=== PATIENT | female | born 1990 | race Two or more races ===

== ENCOUNTER 2017-07-20 22:00 | Inpatient (IN) | payer OTHER ==
[~2017-07-20 22:00] MED LIST: DEXTROSE 5%-LACTATED RINGERS 1,000 ML IV SCH
[2017-07-20] MEDS ORDERED: AMPICILLIN SODIUM 2 GM VIAL ONE (22:18)
[2017-07-20 22:27] VITALS: BMI 30.2
[2017-07-20] MEDS ORDERED: AMPICILLIN - 2 GM in SODIUM CHLORIDE 100 ML IVPB ONE (22:30)
[2017-07-20 23:04] LABS: BASO % 0.6 % (0-2.0); EOS % 0.5 % (0-4.5); HEMOGLOBIN 9.2 GM/dL (10.7-15.3); LYMPH % 10.7 % (8-40); MCH 28.9 pg (25.7-33.7); MEAN CELL VOLUME 87.7 fl (80-96); MEAN PLT VOLUME 11.4 fl (7.5-11.1); MONO % 6.8 % (3.8-10.2); NEUT % 81.4 % (42.8-82.8); PLATELET COUNT 121 K/MM3 (134-434); RDW 13.7 % (11.6-15.6); WHITE BLOOD COUNT 13.7 K/mm3 (4.0-10.0)
[2017-07-20] MEDS ORDERED: BUTORPHANOL TARTRATE 1 MG/ML VIAL IVPUSH ONE (23:25)
[2017-07-20] MEDS ORDERED: PROMETHAZINE HCL 25 MG/1 ML VIAL IVPUSH ONE (23:25)
[2017-07-20] MEDS ORDERED: OXYTOCIN 20 UNITS in 0.9% NS 20 UNIT/1,000 ML INFUS.BAG IV ONE (23:31)
[2017-07-20] MEDS ORDERED: BUTORPHANOL TARTRATE 1 MG/ML VIAL ONE ×2 (23:31)
[2017-07-20] MEDS ORDERED: PROMETHAZINE HCL 25 MG/1 ML VIAL ONE (23:31)
[2017-07-20] MEDS ORDERED: OXYTOCIN 15 UNITS/ LR 250 ML 15 UNIT/250 ML INFUS.BAG IVPB ONE (23:31)
[2017-07-20 23:40] LABS: ANION GAP 12 (8-16); BLOOD UREA NITROGEN 5 mg/dL (7-18); CALCIUM 8.4 mg/dL (8.5-10.1); CHLORIDE 104 mmol/L (98-107); CO2 24 mmol/L (21-32); CREATININE 0.4 mg/dL (0.55-1.02); GLUCOSE,RANDOM 87 mg/dL (74-106); POTASSIUM 3.8 mmol/L (3.5-5.1); SODIUM 140 mmol/L (136-145)
[2017-07-20 23:40] LABS: INR 1.09 (0.82-1.09); PROTHROMBIN TIME (PATIENT) 12.3 SEC (9.98-11.88)
[2017-07-20 23:42] LABS: ACTIVATED PTT 27.3 SECONDS (26.9-34.4)
[2017-07-20] MEDS ORDERED: OXYTOCIN 15 UNITS/ LR 250 ML 15 UNIT/250 ML INFUS.BAG IVPB SCH (23:45)
--- NOTE | 2017-07-21 00:26 | HP ---
Past Medical History - Admission Chief Complaint: Labor pain History of Present Illness: 26 yo @ 39.6 weeks gestation, EDC 07/21/17, admitted for labor pain. Upon admission she was 3cm dilated. History Source: Patient Limitations to Obtaining History: No Limitations - Past Medical History ...: 3 ...Para: 2 ...Term: 2 ...: 0 ...Spon : 0 ...Induced : 0 ...Multiple Gestation: 0 ...LMP: 10/14/16 ... Weeks Gestation by Dates: 39.5 ...EDC by Dates: 07/22/17 ...EDC by Sono: 07/21/17 - Past Surgical History Past Surgical History: Yes: None Hx Myomectomy: No Hx Transabdominal Cerclage: No - Smoking History Smoking history: Never smoked Have you smoked in the past 12 months: No - Alcohol/Substance Use Hx Alcohol Use: No History of Substance Use: reports: None - Social History Usual Living Arrangement: Yes: With Spouse History of Recent Travel: No Home Medications - Allergies Allergies/Adverse Reactions: Allergies Allergy/AdvReac Type Severity Reaction Status Date / Time No Known Allergies Allergy Verified 03/17/13 21:16 - Home Medications Home Medications: Ambulatory Orders Pnv with Ca,No.71/Iron/FA [ Vitamin Tablet] 1 tab PO DAILY 03/17/13 Family Disease History - Family Disease History Family History: Unremarkable Review of Systems - Review of Systems Constitutional: reports: No Symptoms Eyes: reports: No Symptoms HENT: reports: No Symptoms Neck: reports: No Symptoms Cardiovascular: reports: No Symptoms Respiratory: reports: No Symptoms Gastrointestinal: reports: No Symptoms Genitourinary: reports: Pain Breasts: reports: No Symptoms Reported Musculoskeletal: reports: No Symptoms Integumentary: reports: No Symptoms Neurological: reports: No Symptoms Endocrine: reports: No Symptoms Hematology/Lymphatic: reports: No Symptoms Psychiatric: reports: No Symptoms Pain Intensity: 5 Physical Exam - Maternity Vital Signs: Vital Signs Temperature 98.7 F 07/20/17 23:00 Pulse Rate 95 H 07/20/17 23:00 Respiratory Rate 20 07/20/17 23:00 Blood Pressure 128/76 07/20/17 23:00 O2 Sat by Pulse Oximetry (%) Constitutional: Yes: Well Nourished Eyes: Yes: Conjunctiva Clear HENT: Yes: Atraumatic Neck: Yes: Supple Cardiovascular: Yes: Regular Rate and Rhythm Lungs: Clear to auscultation - Abdominal Exam/OB Number of Fetuses: Single Presentation: Vertex Contractions: Yes Regularity: Irregular Intensity: Mild/Mod - Vaginal Exam/OB Vaginal Bleediing: No Dilatation (cm): 3 Station: -2 - Physical Exam ...Motor Strength: WNL Psychiatric: Yes: Alert, Oriented - Labs Lab Results: CBC, BMP 07/20/17 22:48 07/20/17 22:48 Assessment/Plan Labor pain in Admit to L&D Analgesia as needed Pitocin augmentation Anticipate
[2017-07-21] MEDS ORDERED: D5W-LR W/ 20 UNITS OXYTOCIN 20 UNIT/1,000 ML INFUS.BAG IV SCH (01:50)
[2017-07-21] MEDS ORDERED: METHYLERGONOVINE MALEATE 0.2 MG/1 ML AMP IM PRN (01:51)
[2017-07-21] MEDS ORDERED: BENZOCAINE 20% 57 GM BOTTLE TP PRN (01:51)
[2017-07-21] MEDS ORDERED: WITCH HAZEL 50% (TUCKS) 40 PAD/JAR PAD TP PRN (01:51)
[2017-07-21] MEDS ORDERED: BISACODYL 10 MG SUPP.RECT RC PRN (01:51)
[2017-07-21] MEDS ORDERED: BENZOCAINE 28 GM HEMORRHOIDAL OINTMENT TP PRN (01:51)
--- NOTE | 2017-07-21 01:58 | PN ---
Delivery - Delivery Vaginal Delivery: Spontaneous Type of Anesthesia: Local Episiotomy/Laceration: None EBL (cc): 250 Delivery, Single - Feeding Plan Initial Plan: Elected not to breastfeed exclusively throughout hospitalization Remarks - Remarks Remarks: Normal spontaneous vaginal delivery of a live boy over intact perineum. Nose / Oropharynx suctioned @ perineum. Tight nuchal cord x 2 noted. Cord clamped and cut. Baby handed to the waiting nurses. Placenta expelled spontaneously intact.
[2017-07-21] MEDS: OXYTOCIN 20 UNITS in 0.9% NS 20 UNIT/1,000 ML INFUS.BAG IV SCH ×2 (02:00→06:39)
[2017-07-21] MEDS ORDERED: AMPICILLIN - 1 GM in SODIUM CHLORIDE 100 ML IVPB SCH (02:30)
[2017-07-21] MEDS ORDERED: TUBERCULIN PPD 5 TU/0.1ML SYRINGE (IN PATIENT USE ONLY) ID ONE (03:00)
[2017-07-21] MEDS: ACETAMINOPHEN 325 MG TABLET (FP) PO PRN ×2 (03:48→11:37)
[2017-07-21] MEDS: IBUPROFEN 600 MG TABLET (FP) PO PRN (03:49)
[2017-07-21] MEDS: FERROUS SO4 325 MG TABLET (FP) PO SCH ×3 (07:54→17:00)
[2017-07-21] MEDS: PRENATAL VITAMINS W/ FOLIC ACID TABLET (FP) PO SCH (09:17)
[2017-07-22] MEDS: ACETAMINOPHEN 325 MG TABLET (FP) PO PRN ×2 (00:34→08:55)
[2017-07-22] MEDS: IBUPROFEN 600 MG TABLET (FP) PO PRN (00:35)
--- NOTE | 2017-07-22 07:57 | PN ---
Post Progress Note Post Day: 1 Type of Delivery: Primary C/S Vital Signs: Vital Signs Temperature 97.4 F L 07/21/17 20:47 Pulse Rate 82 07/21/17 20:47 Respiratory Rate 20 07/21/17 20:47 Blood Pressure 102/57 07/21/17 20:47 O2 Sat by Pulse Oximetry (%) Breast Exam: Yes: Soft Uterus: Yes: Fundus Firm Incision: Yes: Dressing dry and intact Abdomen/GI: Yes: Abdomen soft Lochia: Yes: Rubra Lochia, amount: Moderate Extremities: Yes: Calves non-tender Perineum: Yes: Intact - Labs Labs: CBC WBC 13.7 K/mm3 (4.0-10.0) H D 07/20/17 22:48 RBC 3.20 M/mm3 (3.60-5.2) L 07/20/17 22:48 Hgb 9.2 GM/dL (10.7-15.3) L D 07/20/17 22:48 Hct 28.0 % (32.4-45.2) L D 07/20/17 22:48 MCV 87.7 fl (80-96) 07/20/17 22:48 MCH 28.9 pg (25.7-33.7) 07/20/17 22:48 MCHC 33.0 g/dl (32.0-36.0) 07/20/17 22:48 RDW 13.7 % (11.6-15.6) 07/20/17 22:48 Plt Count 121 K/MM3 (134-434) L 07/20/17 22:48 MPV 11.4 fl (7.5-11.1) H 07/20/17 22:48 Neutrophils % 81.4 % (42.8-82.8) D 07/20/17 22:48 Lymphocytes % 10.7 % (8-40) D 07/20/17 22:48 Monocytes % 6.8 % (3.8-10.2) 07/20/17 22:48 Eosinophils % 0.5 % (0-4.5) 07/20/17 22:48 Basophils % 0.6 % (0-2.0) 07/20/17 22:48 Assessment/Plan s/p section day #1 condition stable, taking po well cbc is pending results encourage ambulation.
[2017-07-22] MEDS: OXYTOCIN 20 UNITS in 0.9% NS 20 UNIT/1,000 ML INFUS.BAG IV SCH (08:54)
[2017-07-22] MEDS: FERROUS SO4 325 MG TABLET (FP) PO SCH ×3 (08:55→17:08)
[2017-07-22] MEDS: PRENATAL VITAMINS W/ FOLIC ACID TABLET (FP) PO SCH ×2 (08:57→10:33)
[2017-07-22 09:06] LABS: BASO % 0.3 % (0-2.0); EOS % 0.7 % (0-4.5); HEMOGLOBIN 9.7 GM/dL (10.7-15.3); LYMPH % 12.7 % (8-40); MCH 28.2 pg (25.7-33.7); MCHC 31.3 g/dl (32.0-36.0); MEAN PLT VOLUME 10.8 fl (7.5-11.1); NEUT % 82.3 % (42.8-82.8); PLATELET COUNT 117 K/MM3 (134-434); RBC 3.44 M/mm3 (3.60-5.2); WHITE BLOOD COUNT 13.8 K/mm3 (4.0-10.0)
[2017-07-22] MEDS ORDERED: FLU VACCINE QUAD 60 MCG/0.5 ML (MDV 17-18) IM ONE ×2 (14:00→14:15)
[2017-07-22] MEDS ORDERED: DIPHTH,PERTUSS(ACELL),TET 0.5 ML DISP.SYRIN IM ONE (14:15)
[2017-07-22] MEDS ORDERED: SENNOSIDES/DOCUSATE COMBO (SENNA PLUS) TABLET (UD) PO PRN (22:00)
[2017-07-23 09:35] VITALS: BP 105/59; PULSE 101; TEMP 97.5
[2017-07-23] MEDS: FERROUS SO4 325 MG TABLET (FP) PO SCH ×2 (09:57→12:55)
[2017-07-23] MEDS: PRENATAL VITAMINS W/ FOLIC ACID TABLET (FP) PO SCH (09:57)
[2017-07-23] MEDS: OXYTOCIN 20 UNITS in 0.9% NS 20 UNIT/1,000 ML INFUS.BAG IV SCH (14:10)
== END 2017-07-23 13:00 | disposition home or self-care (01) | DRG 560 ==
LOC: JLDR 22:00 → J3W 07-21 03:20
PROVIDERS: ADMIT Obstetrics & Gynecology; ATTEND Obstetrics & Gynecology
PROC: 10E0XZZ Delivery of Products of Conception, External Approach (ICD-10-PCS; principal; 2017-07-21)
DX: O69.1XX0 Labor and delivery complicated by cord around neck, with compression, not applicable or unspecified (principal); Z3A.39 39 weeks gestation of pregnancy; Z37.0 Single live birth
CPT/HCPCS: 36415; 59409; 80048; 85025; 85610; 85730; 86593; 86850; 86900; 86901; 87389; 90688; 90715; G0008

== ENCOUNTER 2018-10-28 09:47 | Emergency (ER) | payer OTHER ==
[2018-10-28 10:29] VITALS: BP 107/67; PULSE 86; TEMP 97.9; BMI 23.8
--- NOTE | 2018-10-28 10:52 | PDOC ---
History of Present Illness - General Chief Complaint: Injury Stated Complaint: PINKY FINGER INJURY Time Seen by Provider: 10/28/18 10:41 History Source: Patient Exam Limitations: No Limitations - History of Present Illness Initial Comments: 10/28/18 10:49 27 year old female with no significant medical or surgical history presents with injury to right 5th digit since Sunday. Patient reports that on Sunday she was playing on the slide with her son when she jabbed her right 5th digit. Complaining of swelling and inability to extend right 5th digit. Also states it is painful. Occurred: reports: other (3 days ago) Severity: reports: mild Upper Extremity Pain Location: right: 5th finger Method of Injury: reports: fell, twisted Modifying Factors: improves with: immobilization Extremity Pain Location - Extremity Pain Location Extremity Pain Locations: right: 5th finger Past History - Travel Traveled outside of the country in the last 30 days: No Close contact w/someone who was outside of country & ill: No - Past Medical History Allergies/Adverse Reactions: Allergies Allergy/AdvReac Type Severity Reaction Status Date / Time No Known Allergies Allergy Verified 10/28/18 10:20 Home Medications: Ambulatory Orders Ibuprofen 600 mg PO QID #20 tablet 10/28/18 Asthma: No Cancer: No Cardiac Disorders: No COPD: No Diabetes: No HTN: No Seizures: No Thyroid Disease: No - Suicide/Smoking/Psychosocial Hx Smoking History: Never smoked Have you smoked in the past 12 months: No Hx Alcohol Use: No Drug/Substance Use Hx: No Hx Substance Use Treatment: No Review of Systems - Review of Systems Able to Perform ROS?: Yes Is the patient limited Kiswahili proficient: Yes Constitutional: No: Chills, Fever, Weakness HEENTM: No: Nose Pain, Hearing Loss, Difficulty Swallowing Respiratory: No: Cough, Orthopnea, Wheezing, Productive cough Cardiac (ROS): No: Edema, Lightheadedness ABD/GI: No: Abdominal Distended, Blood Streaked Bowels, Poor Appetite, Indigestion, Abdominal cramping : No: Hematuria, Testicular Swelling Musculoskeletal: Yes: Joint Pain, Joint Swelling. No: Back Pain, Gout Integumentary: Yes: Bruising, Erythema. No: Change in Color Neurological: No: Headache, Numbness, Paresthesia Endocrine: No: Intolerance to Heat *Physical Exam - Vital Signs Last Vital Signs Temp Pulse Resp BP Pulse Ox 97.9 F 86 14 107/67 99 10/28/18 10:20 10/28/18 10:20 10/28/18 10:20 10/28/18 10:20 10/28/18 10:20 - Physical Exam General Appearance: Yes: Nourished, Appropriately Dressed. No: Apparent Distress HEENT: positive: TMs Normal, Pharynx Normal Neck: positive: Supple. negative: Lymphadenopathy (R), Lymphadenopathy (L) Respiratory/Chest: positive: Lungs Clear, Normal Breath Sounds Cardiovascular: positive: Regular Rhythm, Regular Rate Extremity: positive: Normal Capillary Refill, Swelling, Erythema, Other (right 5th digit with bruising to palmar aspect of 5th digit, + swelling, inability to extend and flex without pain) Integumentary: positive: Bruising Neurologic: positive: Fully Oriented Medical Decision Making - Medical Decision Making 10/28/18 10:52 27 year old female with no significant medical or surgical history presents with injury to right 5th digit since Sunday. Plan urine preg xray of right hand analgesia 10/28/18 12:12 10/28/18 12:52 digital block with 2% lidocaine 3cc applied attempt to reduce x 3, KIM humphrey also tried with no success ortho consulted: spoke with Dr. Avila who will see her in office now Patient given address and information and d/c to orthopedic office *DC/Admit/Observation/Transfer Diagnosis at time of Disposition: Dislocated finger Qualifiers: Encounter type: initial encounter Qualified Code(s): S63.259A - Unspecified dislocation of unspecified finger, initial encounter - Discharge Dispostion Disposition: HOME Condition at time of disposition: Good - Prescriptions Prescriptions: Ibuprofen 600 mg PO QID #20 tablet - Referrals Referrals: Steve Avila MD [Staff Physician] - (Go to [address] [place] [address] Go now ) - Patient Instructions Printed Discharge Instructions: DI for Finger Flexor Tendon Injury Additional Instructions: Please go to ortho pedic clinic at [address] [place] [address] after leaving emergency department Follow up with orthopedic as directed Take analgesia for pain as needed - Post Discharge Activity
[2018-10-28] MEDS ORDERED: IBUPROFEN 600 MG TABLET (FP) PO ONE ×2 (10:53→10:56)
== END 2018-10-28 13:00 | disposition home or self-care (01) ==
LOC: JER 09:47 → JERFT 09:47
PROC: 0RSWXZZ Reposition Right Finger Phalangeal Joint, External Approach (ICD-10-PCS; principal; 2018-10-28)
DX: S63.286A Dislocation of proximal interphalangeal joint of right little finger, initial encounter (principal); W22.8XXA Striking against or struck by other objects, initial encounter; Y93.79 Activity, other specified sports and athletics; Y92.830 Public park as the place of occurrence of the external cause; Y99.8 Other external cause status
CPT/HCPCS: 26770; 73130-TC-RT-FY; 84703; 99281-25

== ENCOUNTER 2018-10-30 14:26 | Day surgery (SDC) | payer OTHER ==
[2018-10-29 15:15] VITALS: BMI 25.3
[2018-10-30] MEDS ORDERED: DEXAMETHASONE SOD PHOSPHATE 4 MG/1 ML VIAL ONE (15:10)
[2018-10-30] MEDS ORDERED: PROPOFOL 20 ML ONE ×2 (15:10)
[2018-10-30] MEDS ORDERED: ONDANSETRON 4 MG/2 ML VIAL ONE ×3 (15:10→16:26)
[2018-10-30] MEDS ORDERED: MIDAZOLAM HCL 2 MG/2 ML SINGLE DOSE VIAL ONE (15:10)
[2018-10-30] MEDS ORDERED: ceFAZolin SODIUM 1 GM VIAL ONE (15:12)
[2018-10-30] MEDS ORDERED: SUCCINYLCHOLINE CHLORIDE 200 MG/10 ML VIAL ONE (15:14)
[2018-10-30] MEDS ORDERED: KETOROLAC TROMETHAMINE 60 MG/2 ML VIAL ONE (15:15)
[2018-10-30] MEDS ORDERED: DESFLURANE GAS 240 ML BOTTLE IH ONE (15:15)
[2018-10-30] MEDS ORDERED: SEVOFLURANE 250 ML BTL ONE (15:15)
[2018-10-30] MEDS ORDERED: ePHEDrine SULFATE 50 MG/1 ML AMPULE ONE (16:43)
[2018-10-30] MEDS ORDERED: BUPIVACAINE HCL 0.25% 125 MG/50 ML VIAL ONE (17:07)
[2018-10-30] MEDS ORDERED: BUPIVACAINE HCL 0.25% 125 MG/50 ML VIAL NR ONE (17:09)
[2018-10-30] MEDS ORDERED: oxyCODONE HCL 5 MG TABLET PO PRN (17:29)
[2018-10-30] MEDS ORDERED: ONDANSETRON 4 MG/2 ML VIAL IVPUSH PRN (17:29)
[2018-10-30] MEDS ORDERED: oxyCODONE HCL 5 MG TABLET ONE (18:10)
[2018-10-30 19:56] VITALS: BP 101/60; PULSE 74; TEMP 97.8
--- NOTE | 2018-11-01 13:59 | OP ---
DATE OF ADMISSION: 10/30/2018 PREOPERATIVE DIAGNOSIS: Right small finger Proximal phalanx intraarticular fracture, displaced. POSTOPERATIVE DIAGNOSIS: same OPERATION: closed reduction and percutaneous pinning right small finger proximal finds fracture. SURGEON: Babatunde Zurita MD educational program assistant: Federico ALVAREZ ANESTHESIA: General. COMPLICATIONS: None. ESTIMATED BLOOD LOSS: Minimal. INDICATIONS FOR PROCEDURE: The patient is a 27-year-old female with the above findings indicated for operative treatment. Risks benefits alternatives were discussed with her at length and proper informed consent was obtained. DESCRIPTION OF PROCEDURE: After proper identification of the patient and correct operative site, the patient was brought to the operating room and placed spine on the operating table with bony prominences well padded. She was given a dose of IV antibiotics and the patient was prepped and draped in the usual sterile fashion. reduction maneuver was performed under live fluoroscopy and I found it was possible to get a satisfactory reduction. Therefore 2 K wires were placed one from the tip of the finger across the DIP and PIP joints and the second 1 diagonally across the fracture site. This provided secure stable fixation of the fracture in satisfactory position confirmed clinically and radiographically. Pins were cut short and bent outside of the skin and sterile dressings and a splint were placed. Patient was reversed from anesthesia and brought to the recovery room in stable condition she tolerated well BABATUNDE ZURITA M.D. [id number] MTDD
== END 2018-10-30 19:25 | disposition home or self-care (01) ==
LOC: FASU 14:26
PROVIDERS: ATTEND Orthopaedic Surgery Hand Surgery
PROC: 0PST34Z Reposition Right Finger Phalanx with Internal Fixation Device, Percutaneous Approach (ICD-10-PCS; principal; 2018-10-30 16:46)
DX: S62.616A Displaced fracture of proximal phalanx of right little finger, initial encounter for closed fracture (principal); X58.XXXA Exposure to other specified factors, initial encounter; Y93.9 Activity, unspecified; Y92.9 Unspecified place or not applicable
CPT/HCPCS: 73130-TC-RT-FY; 94760

== ENCOUNTER 2022-10-17 13:55 | Inpatient (IN) | payer OTHER ==
[2022-10-17 15:35] LABS: BASO % 0.8 % (0-2.0); EOS % 0.5 % (0-4.5); HEMATOCRIT 32.4 % (32.4-45.2); HEMOGLOBIN 11.1 GM/dL (10.7-15.3); LYMPH % 21.8 % (8-40); MCH 30.2 pg (25.7-33.7); MCHC 34.1 g/dl (32.0-36.0); MEAN CELL VOLUME 88.5 fl (80-96); MEAN PLT VOLUME 10.4 fl (7.5-11.1); MONO % 6.2 % (3.8-10.2); NEUT % 70.7 % (42.8-82.8); PLATELET COUNT 121 10^3/uL (134-434); RBC 3.66 M/mm3 (3.60-5.2); RDW 14.6 % (11.6-15.6); WHITE BLOOD COUNT 7.4 K/mm3 (4.0-10.0)
[2022-10-17 15:54] LABS: ACTIVATED PTT 30.4 SECONDS (25.2-36.5); INR 1.01 (0.83-1.09); PROTHROMBIN TIME (PATIENT) 11.7 SEC (9.7-13.0)
[2022-10-17 15:57] LABS: CALCIUM 8.5 mg/dL (8.5-10.1)
[2022-10-17 15:58] VITALS: BMI 32.8
[2022-10-17 15:58] LABS: BLOOD UREA NITROGEN 8.3 mg/dL (7-18)
[2022-10-17 16:01] LABS: CREATININE 0.4 mg/dL (0.55-1.3)
[2022-10-17] MEDS ORDERED: BUTORPHANOL TARTRATE 1 MG/ML VIAL IVPB PRN (16:06)
[2022-10-17] MEDS ORDERED: PROMETHAZINE HCL 25 MG/1 ML VIAL IVPB ONE (16:06)
[2022-10-17] MEDS ORDERED: ELECTROLYTE-148 SOLN 1,000 ML IV SCH (16:15)
[2022-10-17] MEDS ORDERED: OXYTOCIN 30 UNITS in 0.9% NS 30 UNIT/500 ML INFUS.BAG IVPB ONE (17:28)
[2022-10-17] MEDS: OXYTOCIN 30 UNITS in 0.9% NS 30 UNIT/500 ML INFUS.BAG IVPB SCH (17:35)
[2022-10-17] MEDS ORDERED: AMPICILLIN - 2 GM in SODIUM CHLORIDE 100 ML IVPB ONE (18:15)
[2022-10-17] MEDS ORDERED: AMPICILLIN SODIUM 2 GM VIAL ONE (18:34)
[2022-10-17] MEDS ORDERED: AMPICILLIN SODIUM 1 GM VIAL ONE (22:14)
[2022-10-17] MEDS: AMPICILLIN - 1 GM in SODIUM CHLORIDE 100 ML IVPB SCH (22:35)
[2022-10-17] MEDS ORDERED: BUTORPHANOL TARTRATE 2 MG/ML VIAL ONE (23:33)
[2022-10-17] MEDS ORDERED: PROMETHAZINE HCL 25 MG/1 ML VIAL ONE (23:33)
[2022-10-18] MEDS ORDERED: OXYTOCIN 20 UNITS in 0.9% NS 20 UNIT/1,000 ML INFUS.BAG IV ONE (01:12)
[2022-10-18] MEDS ORDERED: LIDOCAINE HCL 1% PRESERVATIVE FREE - 30ML VIAL ONE (01:12)
[2022-10-18] MEDS ORDERED: oxyCODONE HCL 5 MG TABLET PO PRN (01:21)
[2022-10-18] MEDS ORDERED: BENZOCAINE 28 GM HEMORRHOIDAL OINTMENT TP PRN (01:21)
[2022-10-18] MEDS ORDERED: WITCH HAZEL 50% (TUCKS) 40 PAD/JAR PAD TP PRN (01:21)
[2022-10-18] MEDS ORDERED: BENZOCAINE 20% 57 GM BOTTLE TP PRN (01:21)
[2022-10-18] MEDS ORDERED: METHYLERGONOVINE MALEATE 0.2 MG/1 ML AMP IM PRN (01:21)
[2022-10-18] MEDS ORDERED: BISACODYL 10 MG SUPP.RECT RC PRN (01:21)
[2022-10-18] MEDS ORDERED: ACETAMINOPHEN 325 MG TABLET (FP) PO PRN (01:21)
[2022-10-18] MEDS ORDERED: OXYTOCIN 20 UNITS in 0.9% NS 20 UNIT/1,000 ML INFUS.BAG IV SCH (01:30)
[2022-10-18 02:07] LABS: CORD BASE EXCESS -2.7 mmol/L (0-2); CORD HCO3 23.4 mmHg (20-29); CORD PCO2 44.9 mmHg (30-78); CORD pH 7.334 (7.14-7.44)
[2022-10-18 02:20] LABS: CORD BASE EXCESS -1.7 mmol/L (0-2); CORD PCO2 44.4 mmHg (30-78); CORD pH 7.351 (7.14-7.44)
[2022-10-18] MEDS: AMPICILLIN - 1 GM in SODIUM CHLORIDE 100 ML IVPB SCH (06:35)
[2022-10-18] MEDS: FERROUS SO4 325 MG TABLET (FP) PO SCH ×3 (10:15→17:45)
[2022-10-18] MEDS: IBUPROFEN 600 MG TABLET (FP) PO PRN ×2 (10:15→23:45)
[2022-10-18] MEDS: PRENATAL VITAMINS W/ FOLIC ACID TABLET (FP) PO SCH (10:17)
[2022-10-19 09:09] LABS: BASO % 0.3 % (0-2.0); EOS % 0.9 % (0-4.5); HEMATOCRIT 28.6 % (32.4-45.2); MCH 30.9 pg (25.7-33.7); MCHC 35.2 g/dl (32.0-36.0); MEAN CELL VOLUME 87.8 fl (80-96); MEAN PLT VOLUME 10.6 fl (7.5-11.1); MONO % 6.2 % (3.8-10.2); NEUT % 72.6 % (42.8-82.8); PLATELET COUNT 104 10^3/uL (134-434); RBC 3.25 M/mm3 (3.60-5.2); RDW 14.3 % (11.6-15.6); WHITE BLOOD COUNT 9.3 K/mm3 (4.0-10.0)
[2022-10-19] MEDS: PRENATAL VITAMINS W/ FOLIC ACID TABLET (FP) PO SCH (09:30)
[2022-10-19] MEDS: IBUPROFEN 600 MG TABLET (FP) PO PRN (09:30)
[2022-10-19] MEDS: FERROUS SO4 325 MG TABLET (FP) PO SCH ×3 (09:30→18:09)
[2022-10-19] MEDS: OXYTOCIN 30 UNITS in 0.9% NS 30 UNIT/500 ML INFUS.BAG IVPB SCH (21:03)
[2022-10-19] MEDS ORDERED: SENNOSIDES/DOCUSATE COMBO (SENNA PLUS) TABLET (UD) PO PRN (22:00)
[2022-10-20] MEDS: IBUPROFEN 600 MG TABLET (FP) PO PRN (01:36)
[2022-10-20] MEDS: FERROUS SO4 325 MG TABLET (FP) PO SCH ×2 (08:36→11:30)
[2022-10-20 10:24] VITALS: BP 104/70; PULSE 92; RESP 17; TEMP 98.8
[2022-10-20] MEDS: PRENATAL VITAMINS W/ FOLIC ACID TABLET (FP) PO SCH (10:57)
== END 2022-10-20 12:15 | disposition home or self-care (01) | DRG 560 ==
LOC: JLDR 13:55 → J3W 10-18 05:30
PROVIDERS: ADMIT Obstetrics & Gynecology; ATTEND Obstetrics & Gynecology
PROC: 10E0XZZ Delivery of Products of Conception, External Approach (ICD-10-PCS; principal; 2022-10-18)
PROC: 0HQ9XZZ Repair Perineum Skin, External Approach (ICD-10-PCS; 2022-10-18)
DX: O48.0 Post-term pregnancy (principal); O41.03X0 Oligohydramnios, third trimester, not applicable or unspecified; Z3A.40 40 weeks gestation of pregnancy; Z37.0 Single live birth; O70.0 First degree perineal laceration during delivery
CPT/HCPCS: 36415; 36600; 59409; 80048; 82803; 85025; 85610; 85730; 86780; 86850; 86900; 86901; C9803-CS; U0003; U0005